=== PATIENT | male | born 1960 | race Caucasian/White ===

== ENCOUNTER 2017-11-10 11:18 | Inpatient (IN) | payer BC ==
[2017-11-09 12:21] LABS: BASOPHILS # (AUTO) 0.1 X10'3 (0-0.2); BASOPHILS % (AUTO) 0.5 % (0-1); EOSINOPHILS # (AUTO) 0.4 X10'3 (0-0.9); EOSINOPHILS % (AUTO) 3.4 % (0-6); HEMATOCRIT 50.7 % (42.0-52.0); HEMOGLOBIN 17.1 g/dl (14.0-17.9); LYMPHOCYTES # (AUTO) 2.7 X10'3 (1.1-4.8); LYMPHOCYTES % (AUTO) 20.6 % (21-51); MEAN CORPUSCULAR HEMOGLOBIN 28.8 PG (27.0-31.0); MEAN CORPUSCULAR HGB CONC 33.8 % (33.0-36.5); MEAN CORPUSCULAR VOLUME 85.3 FL (78-98); MEAN PLATELET VOLUME 8.7 FL (7.4-10.4); MONOCYTES # (AUTO) 1.1 X10'3 (0-0.9); MONOCYTES % (AUTO) 8.4 % (2-12); NEUTROPHILS # (AUTO) 8.8 X10'3 (1.8-7.7); NEUTROPHILS % (AUTO) 67.1 % (42-75); PLATELET COUNT 206 X10'3 (140-440); RED BLOOD COUNT 5.95 X10'6 (4.70-6.10); RED CELL DISTRIBUTION WIDTH 13.5 % (11.5-14.5); WHITE BLOOD COUNT 13.1 X10'3 (4.5-11.0)
[2017-11-09 12:48] LABS: ALANINE AMINOTRANSFERASE 37 U/L (12-78); ALBUMIN/GLOBULIN RATIO 1.2 (1.1-1.5); ALKALINE PHOSPHATASE 68 IU/L (46-116); ANION GAP 6 (8-16); ASPARTATE AMINO TRANSFERASE 13 U/L (10-37); BILIRUBIN,TOTAL 1.2 MG/DL (0.1-1.0); BLOOD UREA NITROGEN 18 MG/DL (7-18); BUN/CREATININE RATIO 18.9 (5.4-32.0); CALCIUM 9.2 MG/DL (8.5-10.1); CHLORIDE 107 MMOL/L (99-107); CREATININE 0.95 MG/DL (0.60-1.10); GLUCOSE 92 MG/DL (70-104); SODIUM 143 MMOL/L (135-145); TOTAL CARBON DIOXIDE 30.3 MMOL/L (24-32); TOTAL PROTEIN 7.4 G/DL (6.4-8.2); eGFR 82 ML/MIN
[2017-11-09 12:52] LABS: PARTIAL THROMBOPLASTIN TIME 24 SECONDS (22-32); PROTHROMBIN TIME 9.9 SECONDS (9.0-12.0)
[~2017-11-10] VITALS: Ht 170.2 cm; Wt 88.3 kg
[2017-11-10] VITALS (10 sets, daily range): BP systolic 117–148; BP diastolic 71–104
[~2017-11-10 11:18] MED LIST: LIDOcaine 2% (20 mg/ml) 5ml cardiac syringe ONE; MAGNESIUM SULFATE 4 MEQ/ML (1gm/2ml) injection ONE; albumin (human) 25% 100 ML IV solution IV ONE; heparin 1,000 units/ml 10ml inj ONE; heparin 10,000 units/1 ML INJ ONE; methylPREDNISolone sod. succ. 500mg inj ONE; phenylephrine 10mg/ml inj IV ONE; potassium Cl 2 mEq/ml inj IV ONE; sodium bicarbonate (8.4%) 1 mEq/ml syringe ONE
[2017-11-10] MEDS ORDERED: nitroGLYCERIN 0.4mg SUBLingual tab SL PRN (11:50)
[2017-11-10] MEDS ORDERED: diphenhydrAMINE 25mg capsule PO PRN (11:50)
[2017-11-10] MEDS ORDERED: LORazepam 0.5 MG tablet PO PRN (11:50)
[2017-11-10] MEDS ORDERED: SIMV10TA6 PO (11:51)
[2017-11-10] MEDS ORDERED: TACR1CAP28 PO (11:51)
[2017-11-10] MEDS ORDERED: LOSA100T28 PO (11:51)
[2017-11-10] MEDS ORDERED: PRE5T PO (11:51)
[2017-11-10 12:39] LABS: CLARITY,URINE Clear (Clear); COLOR,URINE Yellow (Yellow); GLUCOSE, URINE Negative (Neg); KETONES,URINE Negative (Neg); LEUKOCYTE ESTERASE ,URINE Negative (Neg); NITRITES, URINE Negative (Neg); OCCULT BLOOD,URINE Negative (Neg); PH,URINE 7.5 (4.8-8.0); PROTEIN,URINE Negative (Neg); UROBILINOGEN,URINE 0.2 E.U/dL (0.2-1.0)
[2017-11-10 12:46] LABS: ABG BASE EXCESS -0.3 mmol/L (-2.0-3.0); ABG HCO3 23.4 mmol/L (22.0-26.0); ABG OXYGEN SATURATION 95.2 % (95-98); ABG PCO2 (T) 35.8 mmHg (35.0-48.0); ABG PH (T) 7.433 (7.350-7.450); ABG PO2 (T) 74.5 mmHg (83-108); ALLEN'S TEST Positive; FCOHb 0.2 % (0.5-1.5); FMetHb 0.2 % (0.3-1.12); FO2Hb 94.8 % (94-100); TOTAL HEMOGLOBIN 16.7 G/dl (14.0-18.0)
[2017-11-10 12:48] LABS: HEMOGLOBIN A1C 5.5 % (4.5-6.2)
[2017-11-10 12:50] LABS: UA COLLECTION TYPE VOIDED
[2017-11-10] MEDS ORDERED: fentaNYL/PF 50MCG/1 ML 2ML syringe ONE ×2 (13:30→14:25)
[2017-11-10] MEDS ORDERED: midazolam 2 mg/2 ml injection ONE ×2 (13:30→14:25)
[2017-11-10] MEDS ORDERED: LIDOcaine 1%/PF (10mg/ml) 5ml vial ONE (13:30)
[2017-11-10] MEDS ORDERED: iohexol 350MG/ML 100ml bottle IV ONE (13:30)
[2017-11-10] MEDS ORDERED: iohexol 350 MG/ML 50ML vial IV ONE ×2 (13:30→14:16)
[2017-11-10] MEDS: normal saline 1000ml 1,000 ML IV SCH ×2 (13:42→20:33)
[2017-11-10] MEDS ORDERED: ondansetron/PF 4mg/2ml inj IV PRN (15:20)
[2017-11-10] MEDS ORDERED: HYDROcodone/acetaminophen 5mg/325mg tablet PO PRN (15:20)
[2017-11-10] MEDS ORDERED: HYDROcodone/acetaminophen 10/325mg tab PO PRN (15:25)
[2017-11-10] MEDS ORDERED: proCHLORperazine 10 MG/2 ml inj IV PRN (15:25)
[2017-11-10] MEDS: tacrolimus anhydrous 1mg capsule PO SCH ×2 (17:47→20:22)
[2017-11-10] MEDS: mupirocin 2% ointment 22GM TP SCH (20:22)
[2017-11-10] MEDS ORDERED: tacrolimus anhydrous 1mg capsule PO SCH (21:00)
[2017-11-10] MEDS ORDERED: iohexol 300mg/ml 100ml inj. ONE (21:06)
[2017-11-11] VITALS (18 sets, daily range): BP systolic 84–140; BP diastolic 46–89
[2017-11-11] MEDS ORDERED: vancomycin/NS 1 GM ADD-VANTAGE 250 ML IV ONE (05:30)
[2017-11-11] MEDS: insulin regular, human inj. 100 UNITS in normal saline 100ml IV soln 100 ML IV SCH ×8 (05:30→21:58)
[2017-11-11] MEDS ORDERED: ceFAZolin 2gm in dextrose, iso 100 ML IV ONE (05:30)
[2017-11-11] MEDS: insulin Lispro (HumaLOG) vial - multi-dose SQ SCH ×4 (05:30→17:56)
[2017-11-11] MEDS ORDERED: ringers solution, lacted 1,000 ML IV ONE (05:30)
[2017-11-11] MEDS ORDERED: dextrose 50%-water 50ml dispensing syringe IV PRN ×2 (05:30→11:10)
[2017-11-11 05:59] LABS: BASOPHILS # (AUTO) 0.1 X10'3 (0-0.2); BASOPHILS % (AUTO) 0.4 % (0-1); EOSINOPHILS # (AUTO) 0.4 X10'3 (0-0.9); EOSINOPHILS % (AUTO) 2.6 % (0-6); HEMOGLOBIN 15.8 g/dl (14.0-17.9); LYMPHOCYTES # (AUTO) 2.9 X10'3 (1.1-4.8); LYMPHOCYTES % (AUTO) 20.6 % (21-51); MEAN CORPUSCULAR HEMOGLOBIN 28.9 PG (27.0-31.0); MEAN CORPUSCULAR HGB CONC 33.7 % (33.0-36.5); MEAN CORPUSCULAR VOLUME 85.9 FL (78-98); MONOCYTES % (AUTO) 7.4 % (2-12); NEUTROPHILS # (AUTO) 9.7 X10'3 (1.8-7.7); PLATELET COUNT 180 X10'3 (140-440); RED BLOOD COUNT 5.47 X10'6 (4.70-6.10); RED CELL DISTRIBUTION WIDTH 13.3 % (11.5-14.5); WHITE BLOOD COUNT 14.1 X10'3 (4.5-11.0)
[2017-11-11] MEDS ORDERED: famotidine 20mg tablet PO ONE (06:00)
[2017-11-11] MEDS ORDERED: LORazepam 2 mg/ml vial IV ONE (06:00)
[2017-11-11 06:15] LABS: PROTHROMBIN TIME 10.2 SECONDS (9.0-12.0)
[2017-11-11] MEDS: mupirocin 2% ointment 22GM TP SCH (06:26)
[2017-11-11 06:29] LABS: ALANINE AMINOTRANSFERASE 45 U/L (12-78); ALBUMIN 3.6 G/DL (3.4-5.0); ALBUMIN/GLOBULIN RATIO 1.2 (1.1-1.5); ALKALINE PHOSPHATASE 63 IU/L (46-116); ANION GAP 10 (8-16); ASPARTATE AMINO TRANSFERASE 18 U/L (10-37); BILIRUBIN,TOTAL 1.9 MG/DL (0.1-1.0); BLOOD UREA NITROGEN 13 MG/DL (7-18); BUN/CREATININE RATIO 13.7 (5.4-32.0); CALCIUM 8.7 MG/DL (8.5-10.1); CHLORIDE 109 MMOL/L (99-107); CREATININE 0.95 MG/DL (0.60-1.10); GLUCOSE 94 MG/DL (70-104); POTASSIUM 3.7 MMOL/L (3.5-5.1); SODIUM 143 MMOL/L (135-145); TOTAL CARBON DIOXIDE 24.1 MMOL/L (24-32); TOTAL PROTEIN 6.5 G/DL (6.4-8.2); eGFR 82 ML/MIN
[2017-11-11] MEDS ORDERED: isoflurane 100ml inhalation liquid IH ONE (06:50)
[2017-11-11] MEDS ORDERED: nitroGLYCERIN in D5W 50mg/250ml (Tridil) infusion IV ONE (06:50)
[2017-11-11] MEDS ORDERED: MIDAZolam 1mg/ml 10ml vial ONE (06:58)
[2017-11-11] MEDS: tacrolimus anhydrous 1mg capsule PO SCH ×2 (08:00→12:51)
[2017-11-11 08:05] LABS: ABG BASE EXCESS -1.3 mmol/L (-2.0-3.0); ABG HCO3 23.4 mmol/L (22.0-26.0); ABG OXYGEN SATURATION 99.4 % (95-98); ABG PCO2 39.4 mmHg (35.0-45.0); ABG PH 7.391 (7.350-7.450); ABG PO2 392.5 mmHg (60.0-100.0); CL (ABG) 109 mmol/L (99-107); FCOHb 0.4 % (0.5-1.5); FMetHb 0.2 % (0.3-1.12); FO2Hb 98.8 % (94-100); GLUCOSE (ABG) 105 mg/dl (70-105); IONIZED CA (ABG) 1.17 mmol/L (1.03-1.32); K (ABG) 3.7 mmol/L (3.3-5.1); NA (ABG) 138 mmol/L (135-145)
[2017-11-11] MEDS ORDERED: NORMAL SALINE IV ONE (08:05)
[2017-11-11] MEDS ORDERED: TRANEXAMIC ACID IV ONE (08:05)
[2017-11-11] MEDS ORDERED: SUFENTANIL CITRATE 50 MCG/ML 2ml ampule IV ONE (08:09)
[2017-11-11] MEDS ORDERED: fentaNYL/PF 50MCG/1 ML 2ML syringe IV PRN (09:05)
[2017-11-11] MEDS ORDERED: midazolam 2 mg/2 ml injection IV PRN (09:05)
[2017-11-11 09:21] LABS: ABG BASE EXCESS -2.8 mmol/L (-2.0-3.0); ABG HCO3 21.7 mmol/L (22.0-26.0); ABG PH 7.387 (7.350-7.450); ABG PO2 532.1 mmHg (60.0-100.0); CL (ABG) 108 mmol/L (99-107); FCOHb 0.3 % (0.5-1.5); FMetHb 0.4 % (0.3-1.12); FO2Hb 98.3 % (94-100); GLUCOSE (ABG) 136 mg/dl (70-105); IONIZED CA (ABG) 1.03 mmol/L (1.03-1.32); K (ABG) 4.6 mmol/L (3.3-5.1); NA (ABG) 136 mmol/L (135-145); TOTAL HEMOGLOBIN 11.5 G/dl (14.0-18.0)
[2017-11-11] MEDS ORDERED: esmolol inj. 10 ML IV ONE (09:33)
[2017-11-11] MEDS ORDERED: rocuronium 10mg/ml inj IV ONE ×3 (09:33)
[2017-11-11] MEDS ORDERED: hydrocortisone sod succ/PF 100mg/2ml inj. ONE (09:33)
[2017-11-11] MEDS ORDERED: LIDOcaine 2% (20mg/ml) 5ml vial ONE (09:33)
[2017-11-11] MEDS ORDERED: etomidate 2mg/ml inj. ONE (09:33)
[2017-11-11] MEDS ORDERED: 0.9 % SODIUM CHLORIDE 10 ML VIAL ONE ×5 (09:33)
[2017-11-11 09:36] LABS: ABG BASE EXCESS VENOUS 0.7 mmol/L; ABG HCO3 VENOUS 25.9 mmol/L; ABG PCO2 VENOUS 44.2 mmHg; ABG PO2 VENOUS 47.5 mmHg; CL (ABG) 108 mmol/L (99-107); FHHb VENOUS 14.9 %; FMetHb VENOUS 0.3 %; FO2Hb VENOUS 84.8 %; GLUCOSE (ABG) 162 mg/dl (70-105); IONIZED CA (ABG) 1.04 mmol/L (1.03-1.32); K (ABG) 4.5 mmol/L (3.3-5.1); NA (ABG) 137 mmol/L (135-145); TOTAL HEMOGLOBIN 11.5 G/dl (14.0-18.0)
[2017-11-11 09:56] LABS: ABG BASE EXCESS -1.5 mmol/L (-2.0-3.0); ABG HCO3 23.5 mmol/L (22.0-26.0); ABG OXYGEN SATURATION 98.7 % (95-98); ABG PCO2 40.3 mmHg (35.0-45.0); ABG PH 7.383 (7.350-7.450); CL (ABG) 108 mmol/L (99-107); FCOHb 0.3 % (0.5-1.5); FMetHb 0.3 % (0.3-1.12); FO2Hb 98.1 % (94-100); GLUCOSE (ABG) 169 mg/dl (70-105); IONIZED CA (ABG) 1.06 mmol/L (1.03-1.32); K (ABG) 4.7 mmol/L (3.3-5.1); NA (ABG) 136 mmol/L (135-145); TOTAL HEMOGLOBIN 11.4 G/dl (14.0-18.0)
[2017-11-11 10:35] LABS: ABG PCO2 42.3 mmHg (35.0-45.0); CL (ABG) 110 mmol/L (99-107); FCOHb 0.3 % (0.5-1.5); FMetHb 0.3 % (0.3-1.12); FO2Hb 98.4 % (94-100); GLUCOSE (ABG) 154 mg/dl (70-105); IONIZED CA (ABG) 1.23 mmol/L (1.03-1.32); NA (ABG) 138 mmol/L (135-145); TOTAL HEMOGLOBIN 11.7 G/dl (14.0-18.0)
[2017-11-11] MEDS ORDERED: ceFAZolin 1000mg inj ONE (10:48)
[2017-11-11] MEDS ORDERED: nitroGLYCERIN-Tridil 50MG/D5W 250 ML IV PRN (11:09)
[2017-11-11] MEDS ORDERED: niCARDipine/sod cl 20mg/200ml 200 ML IV PRN (11:09)
[2017-11-11] MEDS: sodium chloride 0.45% 1,000 ML IV SCH (11:09)
[2017-11-11] MEDS ORDERED: DOPamine 400mg/D5W 250ml 250 ML IV PRN (11:09)
[2017-11-11] MEDS ORDERED: Neutra Phos packet PO PRN (11:10)
[2017-11-11] MEDS ORDERED: magnesium hydroxide 30ml (MOM) UD suspension PO PRN (11:10)
[2017-11-11] MEDS ORDERED: metoclopramide 5 mg/ml inj IV PRN (11:10)
[2017-11-11] MEDS ORDERED: magnesium 2GM in 50ml NS 50 ML IV PRN (11:10)
[2017-11-11] MEDS ORDERED: normal saline 250ml IV soln 250 ML IV PRN (11:10)
[2017-11-11] MEDS ORDERED: acetaminophen 325mg tablet PO PRN (11:10)
[2017-11-11] MEDS ORDERED: insulin regular, human inj. 100 UNITS in normal saline 100ml IV soln 100 ML IV SCH ×2 (11:10)
[2017-11-11] MEDS ORDERED: sodium phosphate inj. 30 MMOL in dextrose 5%-water 250 ML IV PRN (11:10)
[2017-11-11] MEDS ORDERED: sodium phosphate inj. 15 MMOL in dextrose 5%-water 150 ML IV PRN (11:10)
[2017-11-11] MEDS ORDERED: albumin (Human) 5% 250ml 250 ML IV PRN (11:10)
[2017-11-11] MEDS ORDERED: potassium Cl 20mEq/100mL bag 100 ML IV PRN (11:10)
[2017-11-11 11:46] LABS: ABG BASE EXCESS -1.7 mmol/L (-2.0-3.0); ABG HCO3 23.7 mmol/L (22.0-26.0); ABG OXYGEN SATURATION 98.8 % (95-98); ABG PCO2 (T) 42.3 mmHg (35.0-48.0); ABG PH (T) 7.366 (7.350-7.450); ABG PO2 (T) 204.3 mmHg (83-108); FCOHb 0.1 % (0.5-1.5); FMetHb 0.3 % (0.3-1.12); FO2Hb 98.4 % (94-100); MINUTE VOLUME 8 L/min; PEEP 5 cm H2O; RESPIRATORY RATE 12 b/min; RESPIRATORY RATE (OBSERVED) 15 b/min; TIDAL VOLUME 600 mL; TOTAL HEMOGLOBIN 13.9 G/dl (14.0-18.0)
[2017-11-11 11:54] LABS: HEMATOCRIT 39.4 % (42.0-52.0); HEMOGLOBIN 13.6 g/dl (14.0-17.9); MEAN CORPUSCULAR HEMOGLOBIN 29.5 PG (27.0-31.0); MEAN CORPUSCULAR HGB CONC 34.5 % (33.0-36.5); MEAN CORPUSCULAR VOLUME 85.6 FL (78-98); MEAN PLATELET VOLUME 8.8 FL (7.4-10.4); PLATELET COUNT 124 X10'3 (140-440); RED CELL DISTRIBUTION WIDTH 12.9 % (11.5-14.5)
[2017-11-11 11:58] LABS: WHITE BLOOD COUNT 28.4 X10'3 (4.5-11.0)
[2017-11-11 12:08] LABS: ALANINE AMINOTRANSFERASE 30 U/L (12-78); ALBUMIN/GLOBULIN RATIO 1.6 (1.1-1.5); ALKALINE PHOSPHATASE 40 IU/L (46-116); ANION GAP 4 (8-16); ASPARTATE AMINO TRANSFERASE 33 U/L (10-37); BILIRUBIN,TOTAL 1.9 MG/DL (0.1-1.0); BLOOD UREA NITROGEN 14 MG/DL (7-18); BUN/CREATININE RATIO 14.1 (5.4-32.0); CHLORIDE 113 MMOL/L (99-107); CREATININE 0.99 MG/DL (0.60-1.10); GLUCOSE 137 MG/DL (70-104); MAGNESIUM 2.9 MG/DL (1.5-2.4); PHOSPHORUS 2.5 MG/DL (2.3-4.5); POTASSIUM 3.8 MMOL/L (3.5-5.1); SODIUM 144 MMOL/L (135-145); TOTAL CARBON DIOXIDE 26.6 MMOL/L (24-32); TOTAL PROTEIN 4.9 G/DL (6.4-8.2); eGFR 78 ML/MIN
[2017-11-11 12:25] LABS: MICROCYTOSIS 1+; PLATELET ESTIMATE DECREASED; TOTAL CELLS COUNTED 100
[2017-11-11] MEDS ORDERED: propofol 1000mg/100ml bottle 100 ML IV PRN (12:45)
[2017-11-11] MEDS: potassium Cl 20mEq/100mL bag 100 ML IV PRN ×3 (12:57→17:39)
[2017-11-11 14:56] LABS: ABG BASE EXCESS -6.1 mmol/L (-2.0-3.0); ABG HCO3 18.5 mmol/L (22.0-26.0); ABG OXYGEN SATURATION 91.4 % (95-98); ABG PCO2 (T) 34.2 mmHg (35.0-48.0); ABG PH (T) 7.351 (7.350-7.450); ABG PO2 (T) 61.4 mmHg (83-108); FCOHb 0.2 % (0.5-1.5); FMetHb 0.3 % (0.3-1.12); FO2Hb 90.9 % (94-100); MINUTE VOLUME 14 L/min; PEEP 5 cm H2O; RESPIRATORY RATE 12 b/min; RESPIRATORY RATE (OBSERVED) 20 b/min; TIDAL VOLUME 600 mL; TOTAL HEMOGLOBIN 14.4 G/dl (14.0-18.0)
[2017-11-11] MEDS: cefazolin 1gm/NS 100mL 100 ML IV SCH ×2 (16:14→23:46)
[2017-11-11 16:38] LABS: BASOPHILS % (AUTO) 0.1 % (0-1); EOSINOPHILS % (AUTO) 0 % (0-6); HEMATOCRIT 40.5 % (42.0-52.0); HEMOGLOBIN 13.9 g/dl (14.0-17.9); LYMPHOCYTES # (AUTO) 0.5 X10'3 (1.1-4.8); MEAN CORPUSCULAR HEMOGLOBIN 29.2 PG (27.0-31.0); MEAN CORPUSCULAR HGB CONC 34.3 % (33.0-36.5); MEAN CORPUSCULAR VOLUME 84.9 FL (78-98); MEAN PLATELET VOLUME 8.5 FL (7.4-10.4); MONOCYTES # (AUTO) 0.1 X10'3 (0-0.9); MONOCYTES % (AUTO) 0.7 % (2-12); NEUTROPHILS # (AUTO) 21.7 X10'3 (1.8-7.7); NEUTROPHILS % (AUTO) 97.2 % (42-75); PLATELET COUNT 118 X10'3 (140-440); RED BLOOD COUNT 4.77 X10'6 (4.70-6.10); RED CELL DISTRIBUTION WIDTH 13.4 % (11.5-14.5); WHITE BLOOD COUNT 22.4 X10'3 (4.5-11.0)
[2017-11-11 16:55] LABS: ANISOCYTOSIS 1+; MICROCYTOSIS 1+; PLATELET ESTIMATE DECREASED; TOTAL CELLS COUNTED 100
[2017-11-11 17:27] LABS: ALBUMIN 3.4 G/DL (3.4-5.0); ANION GAP 8 (8-16); BLOOD UREA NITROGEN 15 MG/DL (7-18); BUN/CREATININE RATIO 14.7 (5.4-32.0); CALCIUM 7.8 MG/DL (8.5-10.1); CHLORIDE 114 MMOL/L (99-107); CREATININE 1.02 MG/DL (0.60-1.10); GLUCOSE 116 MG/DL (70-104); POTASSIUM 4.4 MMOL/L (3.5-5.1); SODIUM 146 MMOL/L (135-145); TOTAL CARBON DIOXIDE 24.2 MMOL/L (24-32); eGFR 76 ML/MIN
[2017-11-11] MEDS: ondansetron/PF 4mg/2ml inj IV PRN (17:36)
[2017-11-11] MEDS: docusate sod 100mg capsule PO SCH (20:00)
[2017-11-11] MEDS: mupirocin 2% ointment 22GM NS SCH (20:03)
[2017-11-11] MEDS: vancomycin/NS 1 GM ADD-VANTAGE 250 ML IV SCH (20:03)
[2017-11-12] VITALS (24 sets, daily range): BP systolic 118–157; BP diastolic 28–90
[2017-11-12] MEDS: HYDROcodone/acetaminophen 10/325mg tab PO PRN ×4 (00:57→19:02)
[2017-11-12 03:25] LABS: BASOPHILS % (AUTO) 0 % (0-1); EOSINOPHILS # (AUTO) 0.4 X10'3 (0-0.9); EOSINOPHILS % (AUTO) 1.8 % (0-6); HEMATOCRIT 36.2 % (42.0-52.0); HEMOGLOBIN 12.4 g/dl (14.0-17.9); LYMPHOCYTES # (AUTO) 0.8 X10'3 (1.1-4.8); LYMPHOCYTES % (AUTO) 3.6 % (21-51); MEAN CORPUSCULAR HEMOGLOBIN 29.1 PG (27.0-31.0); MEAN CORPUSCULAR HGB CONC 34.2 % (33.0-36.5); MEAN CORPUSCULAR VOLUME 84.9 FL (78-98); MEAN PLATELET VOLUME 9.1 FL (7.4-10.4); MONOCYTES # (AUTO) 1.9 X10'3 (0-0.9); MONOCYTES % (AUTO) 8.4 % (2-12); NEUTROPHILS # (AUTO) 19.5 X10'3 (1.8-7.7); NEUTROPHILS % (AUTO) 86.2 % (42-75); PLATELET COUNT 103 X10'3 (140-440); RED BLOOD COUNT 4.27 X10'6 (4.70-6.10); RED CELL DISTRIBUTION WIDTH 13.4 % (11.5-14.5); WHITE BLOOD COUNT 22.6 X10'3 (4.5-11.0)
[2017-11-12 03:35] LABS: PARTIAL THROMBOPLASTIN TIME 26 SECONDS (22-32); PROTHROMBIN TIME 10.8 SECONDS (9.0-12.0)
[2017-11-12 03:54] LABS: ALANINE AMINOTRANSFERASE 34 U/L (12-78); ALBUMIN 3.2 G/DL (3.4-5.0); ALBUMIN/GLOBULIN RATIO 1.5 (1.1-1.5); ALKALINE PHOSPHATASE 39 IU/L (46-116); ANION GAP 8 (8-16); ASPARTATE AMINO TRANSFERASE 42 U/L (10-37); BILIRUBIN,TOTAL 2.1 MG/DL (0.1-1.0); BLOOD UREA NITROGEN 13 MG/DL (7-18); BUN/CREATININE RATIO 16.3 (5.4-32.0); CHLORIDE 108 MMOL/L (99-107); GLUCOSE 120 MG/DL (70-104); MAGNESIUM 1.9 MG/DL (1.5-2.4); PHOSPHORUS 3.5 MG/DL (2.3-4.5); POTASSIUM 4.4 MMOL/L (3.5-5.1); SODIUM 140 MMOL/L (135-145); TOTAL CARBON DIOXIDE 24.3 MMOL/L (24-32); TOTAL PROTEIN 5.4 G/DL (6.4-8.2); eGFR > 90 ML/MIN
[2017-11-12] MEDS: insulin regular, human inj. 100 UNITS in normal saline 100ml IV soln 100 ML IV SCH ×4 (04:10→05:53)
[2017-11-12] MEDS: potassium Cl 20mEq/100mL bag 100 ML IV PRN (04:10)
[2017-11-12] MEDS: magnesium 4gm in 100ml NS 100 ML IV PRN (04:11)
[2017-11-12] MEDS: mupirocin 2% ointment 22GM NS SCH ×2 (08:34→20:31)
[2017-11-12] MEDS: cefazolin 1gm/NS 100mL 100 ML IV SCH ×2 (08:34→16:09)
[2017-11-12] MEDS: vancomycin/NS 1 GM ADD-VANTAGE 250 ML IV SCH ×2 (08:34→20:31)
[2017-11-12] MEDS: metoprolol tartrate 12.5mg (1/2 tablet) PO SCH ×2 (08:38→20:31)
[2017-11-12] MEDS: atorvastatin 10mg tablet PO SCH (08:39)
[2017-11-12] MEDS: docusate sod 100mg capsule PO SCH ×2 (08:40→20:31)
[2017-11-12] MEDS: aspirin 325mg tablet, delayed-release (Ecotrin) PO SCH (08:40)
[2017-11-12] MEDS: insulin Lispro (HumaLOG) vial - multi-dose SQ SCH ×2 (08:49→13:55)
[2017-11-12] MEDS: pantoprazole 40mg Tablet.DR PO SCH (08:54)
[2017-11-12] MEDS: losartan 25mg tablet PO SCH (10:23)
[2017-11-12] MEDS ORDERED: mineral oil/petrolatum ophthal oint EACHEYE SCH (14:00)
[2017-11-12] MEDS ORDERED: dextrose ORAL solution 15 GM/59 ML bottle PO PRN ×2 (16:50)
[2017-11-12] MEDS ORDERED: insulin Lispro (HumaLOG) vial - multi-dose SQ SCH (16:50)
[2017-11-12] MEDS ORDERED: glucagon, human recombinant 1mg kit SUBCUT PRN (16:50)
[2017-11-12] MEDS ORDERED: dextrose 50%-water 50ml dispensing syringe IV PRN ×2 (16:50)
[2017-11-12] MEDS ORDERED: Insulin Detemir pen SQ SCH (21:00)
[2017-11-13] VITALS (24 sets, daily range): BP systolic 116–157; BP diastolic 68–95
[2017-11-13] MEDS: cefazolin 1gm/NS 100mL 100 ML IV SCH (01:13)
[2017-11-13] MEDS: HYDROcodone/acetaminophen 10/325mg tab PO PRN ×5 (01:14→19:27)
[2017-11-13] MEDS: ondansetron/PF 4mg/2ml inj IV PRN ×2 (03:18→09:19)
[2017-11-13 03:31] LABS: BASOPHILS % (AUTO) 0 % (0-1); EOSINOPHILS # (AUTO) 0.3 X10'3 (0-0.9); EOSINOPHILS % (AUTO) 1.2 % (0-6); HEMATOCRIT 38.1 % (42.0-52.0); LYMPHOCYTES # (AUTO) 1.2 X10'3 (1.1-4.8); LYMPHOCYTES % (AUTO) 5.4 % (21-51); MEAN CORPUSCULAR HEMOGLOBIN 29.2 PG (27.0-31.0); MEAN CORPUSCULAR HGB CONC 34.1 % (33.0-36.5); MEAN CORPUSCULAR VOLUME 85.6 FL (78-98); MEAN PLATELET VOLUME 8.9 FL (7.4-10.4); MONOCYTES # (AUTO) 2.3 X10'3 (0-0.9); MONOCYTES % (AUTO) 9.7 % (2-12); NEUTROPHILS # (AUTO) 19.5 X10'3 (1.8-7.7); NEUTROPHILS % (AUTO) 83.7 % (42-75); PLATELET COUNT 90 X10'3 (140-440); RED BLOOD COUNT 4.45 X10'6 (4.70-6.10); RED CELL DISTRIBUTION WIDTH 13.6 % (11.5-14.5); WHITE BLOOD COUNT 23.3 X10'3 (4.5-11.0)
[2017-11-13 03:48] LABS: ALBUMIN 3.4 G/DL (3.4-5.0); ANION GAP 6 (8-16); BLOOD UREA NITROGEN 12 MG/DL (7-18); BUN/CREATININE RATIO 13.8 (5.4-32.0); CALCIUM 8.8 MG/DL (8.5-10.1); CHLORIDE 104 MMOL/L (99-107); CREATININE 0.87 MG/DL (0.60-1.10); GLUCOSE 147 MG/DL (70-104); MAGNESIUM 1.8 MG/DL (1.5-2.4); PHOSPHORUS 2.7 MG/DL (2.3-4.5); POTASSIUM 4.2 MMOL/L (3.5-5.1); SODIUM 139 MMOL/L (135-145); TOTAL CARBON DIOXIDE 28.6 MMOL/L (24-32); eGFR > 90 ML/MIN
[2017-11-13] MEDS: magnesium 4gm in 100ml NS 100 ML IV PRN (04:07)
[2017-11-13] MEDS: potassium Cl 20mEq/100mL bag 100 ML IV PRN (04:07)
[2017-11-13 04:55] LABS: TOTAL CELLS COUNTED 100
[2017-11-13 04:56] LABS: PLATELET ESTIMATE DECREASED
[2017-11-13] MEDS: mupirocin 2% ointment 22GM NS SCH (08:04)
[2017-11-13] MEDS: losartan 25mg tablet PO SCH (08:04)
[2017-11-13] MEDS: metoprolol tartrate 12.5mg (1/2 tablet) PO SCH ×2 (08:05→19:52)
[2017-11-13] MEDS: aspirin 325mg tablet, delayed-release (Ecotrin) PO SCH (08:06)
[2017-11-13] MEDS: atorvastatin 10mg tablet PO SCH (08:06)
[2017-11-13] MEDS: pantoprazole 40mg Tablet.DR PO SCH (08:06)
[2017-11-13] MEDS: docusate sod 100mg capsule PO SCH ×2 (08:07→19:52)
[2017-11-13 09:15] LABS: MAGNESIUM 2.2 MG/DL (1.5-2.4)
[2017-11-13] MEDS: mag hydrox/Alum hydrox/simeth 30ml oral suspension PO PRN ×2 (10:25→17:45)
[2017-11-13] MEDS: sodium chloride 0.45% 1,000 ML IV SCH (11:09)
[2017-11-13] MEDS ORDERED: magnesium Cl slow-release 64mg tablet PO PRN (17:50)
[2017-11-13] MEDS ORDERED: potassium Cl 40MEQ/NS 500ml 500 ML IV PRN ×2 (17:50)
[2017-11-13] MEDS ORDERED: potassium Cl 20 mEq SR tablet PO PRN ×2 (17:50)
[2017-11-13] MEDS ORDERED: magnesium 4gm in 100ml NS 100 ML IV PRN (17:50)
[2017-11-13] MEDS ORDERED: magnesium 2GM in 50ml NS 50 ML IV PRN (17:50)
[2017-11-13] MEDS ORDERED: magnesium Cl slow-release 64mg tablet PO SCH (20:00)
[2017-11-13] MEDS ORDERED: potassium Cl 20 mEq SR tablet PO SCH (20:00)
[2017-11-14] VITALS (19 sets, daily range): BP systolic 124–188; BP diastolic 65–98
[2017-11-14] MEDS: HYDROcodone/acetaminophen 10/325mg tab PO PRN ×3 (05:10→19:22)
[2017-11-14 05:29] LABS: BASOPHILS # (AUTO) 0.1 X10'3 (0-0.2); BASOPHILS % (AUTO) 0.4 % (0-1); EOSINOPHILS # (AUTO) 0.2 X10'3 (0-0.9); EOSINOPHILS % (AUTO) 0.9 % (0-6); HEMATOCRIT 37.7 % (42.0-52.0); HEMOGLOBIN 12.8 g/dl (14.0-17.9); LYMPHOCYTES # (AUTO) 1.2 X10'3 (1.1-4.8); LYMPHOCYTES % (AUTO) 7.3 % (21-51); MEAN CORPUSCULAR HEMOGLOBIN 29.4 PG (27.0-31.0); MEAN CORPUSCULAR HGB CONC 33.9 % (33.0-36.5); MEAN CORPUSCULAR VOLUME 86.8 FL (78-98); MEAN PLATELET VOLUME 9.3 FL (7.4-10.4); MONOCYTES # (AUTO) 1.8 X10'3 (0-0.9); MONOCYTES % (AUTO) 10.5 % (2-12); NEUTROPHILS # (AUTO) 13.6 X10'3 (1.8-7.7); NEUTROPHILS % (AUTO) 80.9 % (42-75); PLATELET COUNT 87 X10'3 (140-440); RED BLOOD COUNT 4.35 X10'6 (4.70-6.10); WHITE BLOOD COUNT 16.8 X10'3 (4.5-11.0)
[2017-11-14 05:36] LABS: ALBUMIN 3.1 G/DL (3.4-5.0); ANION GAP 3 (8-16); BLOOD UREA NITROGEN 9 MG/DL (7-18); CALCIUM 8.9 MG/DL (8.5-10.1); CHLORIDE 105 MMOL/L (99-107); CREATININE 0.69 MG/DL (0.60-1.10); GLUCOSE 109 MG/DL (70-104); PHOSPHORUS 2.6 MG/DL (2.3-4.5); POTASSIUM 4.1 MMOL/L (3.5-5.1); SODIUM 139 MMOL/L (135-145); TOTAL CARBON DIOXIDE 30.7 MMOL/L (24-32); eGFR > 90 ML/MIN
[2017-11-14] MEDS ORDERED: magnesium 4gm in 100ml NS 100 ML IV PRN (07:25)
[2017-11-14] MEDS ORDERED: magnesium 2GM in 50ml NS 50 ML IV PRN (07:25)
[2017-11-14] MEDS ORDERED: potassium Cl 40MEQ/NS 500ml 500 ML IV PRN ×2 (07:25)
[2017-11-14] MEDS ORDERED: potassium Cl 20 mEq SR tablet PO PRN ×2 (07:25)
[2017-11-14] MEDS ORDERED: magnesium Cl slow-release 64mg tablet PO PRN (07:25)
[2017-11-14] MEDS ORDERED: magnesium citrate 296ml oral solution PO ONE (07:45)
[2017-11-14] MEDS ORDERED: K and/or MAG REPLACEMENT MC SCH (08:00)
[2017-11-14] MEDS: K and/or MAG REPLACEMENT MC SCH (08:00)
[2017-11-14] MEDS: metoprolol tartrate 12.5mg (1/2 tablet) PO SCH ×2 (08:11→19:29)
[2017-11-14] MEDS: magnesium Cl slow-release 64mg tablet PO SCH ×2 (08:11→19:31)
[2017-11-14] MEDS: atorvastatin 10mg tablet PO SCH (08:12)
[2017-11-14] MEDS: docusate sod 100mg capsule PO SCH ×2 (08:12→20:00)
[2017-11-14] MEDS: pantoprazole 40mg Tablet.DR PO SCH (08:12)
[2017-11-14] MEDS: losartan 25mg tablet PO SCH (08:12)
[2017-11-14] MEDS: potassium Cl 20 mEq SR tablet PO SCH ×2 (08:12→20:00)
[2017-11-14] MEDS: aspirin 325mg tablet, delayed-release (Ecotrin) PO SCH (08:12)
[2017-11-14] MEDS: Protein Smoothie (high protein) 240ml (8oz) cup PO SCH ×2 (13:00→18:00)
[2017-11-14 13:41] LABS: ACTIVATED CLOTTING TIME 111 SEC (101-148)
[2017-11-14 13:41] LABS: ACT @ 1.70 U 295 SEC (193-297); ACT @ 2.84 U 410 SEC (260-420); BASELINE ACT 147 SEC (101-148); PATIENT WEIGHT 89.0k KG
[2017-11-15] VITALS (11 sets, daily range): BP systolic 121–148; BP diastolic 78–96
[2017-11-15] MEDS: HYDROcodone/acetaminophen 10/325mg tab PO PRN ×4 (01:13→19:24)
[2017-11-15 05:49] LABS: BASOPHILS % (AUTO) 0.2 % (0-1); EOSINOPHILS # (AUTO) 0.4 X10'3 (0-0.9); HEMATOCRIT 38.6 % (42.0-52.0); LYMPHOCYTES # (AUTO) 1.4 X10'3 (1.1-4.8); LYMPHOCYTES % (AUTO) 9.6 % (21-51); MEAN CORPUSCULAR HEMOGLOBIN 29.4 PG (27.0-31.0); MEAN CORPUSCULAR HGB CONC 33.7 % (33.0-36.5); MEAN PLATELET VOLUME 9.1 FL (7.4-10.4); MONOCYTES # (AUTO) 1.5 X10'3 (0-0.9); MONOCYTES % (AUTO) 10.1 % (2-12); NEUTROPHILS # (AUTO) 11.3 X10'3 (1.8-7.7); NEUTROPHILS % (AUTO) 77.1 % (42-75); PLATELET COUNT 114 X10'3 (140-440); RED BLOOD COUNT 4.44 X10'6 (4.70-6.10); RED CELL DISTRIBUTION WIDTH 13.1 % (11.5-14.5); WHITE BLOOD COUNT 14.6 X10'3 (4.5-11.0)
[2017-11-15 06:04] LABS: ANION GAP 5 (8-16); BLOOD UREA NITROGEN 13 MG/DL (7-18); BUN/CREATININE RATIO 16.5 (5.4-32.0); CALCIUM 9.4 MG/DL (8.5-10.1); CHLORIDE 105 MMOL/L (99-107); CREATININE 0.79 MG/DL (0.60-1.10); GLUCOSE 98 MG/DL (70-104); MAGNESIUM 1.9 MG/DL (1.5-2.4); SODIUM 140 MMOL/L (135-145); TOTAL CARBON DIOXIDE 30.2 MMOL/L (24-32); eGFR > 90 ML/MIN
[2017-11-15] MEDS: atorvastatin 10mg tablet PO SCH (07:52)
[2017-11-15] MEDS: aspirin 325mg tablet, delayed-release (Ecotrin) PO SCH (07:52)
[2017-11-15] MEDS: pantoprazole 40mg Tablet.DR PO SCH (07:53)
[2017-11-15] MEDS: losartan 25mg tablet PO SCH (07:53)
[2017-11-15] MEDS: docusate sod 100mg capsule PO SCH ×2 (07:53→19:23)
[2017-11-15] MEDS: magnesium Cl slow-release 64mg tablet PO SCH ×2 (07:53→19:23)
[2017-11-15] MEDS: K and/or MAG REPLACEMENT MC SCH (07:54)
[2017-11-15] MEDS: metoprolol tartrate 12.5mg (1/2 tablet) PO SCH ×2 (07:54→19:25)
[2017-11-15] MEDS: potassium Cl 20 mEq SR tablet PO SCH ×2 (08:00→19:24)
[2017-11-15] MEDS: Protein Smoothie (high protein) 240ml (8oz) cup PO SCH ×3 (08:00→18:00)
[2017-11-15] MEDS ORDERED: LOSA25TA21 PO (09:45)
[2017-11-15] MEDS ORDERED: COL100C PO (09:45)
[2017-11-15] MEDS ORDERED: ASPI-41 PO (09:45)
[2017-11-15] MEDS ORDERED: METO25TA6 PO (09:45)
[2017-11-15] MEDS ORDERED: HYDR-3972 PO (09:45)
[2017-11-15] MEDS ORDERED: amiodarone 150mg/dext, iso-os 100 ML IV ONE (13:00)
[2017-11-15] MEDS: amiodarone/D5 450MG/250ML BAG 250 ML IV SCH ×3 (13:17→19:16)
[2017-11-16] MEDS: amiodarone/D5 450MG/250ML BAG 250 ML IV SCH (01:31)
[2017-11-16] MEDS: HYDROcodone/acetaminophen 10/325mg tab PO PRN ×2 (01:36→09:10)
[2017-11-16 03:00] VITALS: BP 133/83
[2017-11-16 05:28] LABS: BASOPHILS % (AUTO) 0.2 % (0-1); EOSINOPHILS # (AUTO) 0.7 X10'3 (0-0.9); EOSINOPHILS % (AUTO) 5.7 % (0-6); HEMATOCRIT 39.2 % (42.0-52.0); HEMOGLOBIN 13.3 g/dl (14.0-17.9); LYMPHOCYTES # (AUTO) 1.4 X10'3 (1.1-4.8); LYMPHOCYTES % (AUTO) 11.3 % (21-51); MEAN CORPUSCULAR HGB CONC 33.9 % (33.0-36.5); MEAN CORPUSCULAR VOLUME 85.6 FL (78-98); MEAN PLATELET VOLUME 8.9 FL (7.4-10.4); MONOCYTES # (AUTO) 1.3 X10'3 (0-0.9); NEUTROPHILS # (AUTO) 9.2 X10'3 (1.8-7.7); NEUTROPHILS % (AUTO) 72.8 % (42-75); PLATELET COUNT 135 X10'3 (140-440); RED BLOOD COUNT 4.58 X10'6 (4.70-6.10); RED CELL DISTRIBUTION WIDTH 13.1 % (11.5-14.5); WHITE BLOOD COUNT 12.6 X10'3 (4.5-11.0)
[2017-11-16 05:55] LABS: ANION GAP 6 (8-16); BLOOD UREA NITROGEN 13 MG/DL (7-18); BUN/CREATININE RATIO 18.6 (5.4-32.0); CALCIUM 9.3 MG/DL (8.5-10.1); CHLORIDE 106 MMOL/L (99-107); GLUCOSE 127 MG/DL (70-104); MAGNESIUM 1.9 MG/DL (1.5-2.4); POTASSIUM 3.9 MMOL/L (3.5-5.1); SODIUM 140 MMOL/L (135-145); TOTAL CARBON DIOXIDE 28.3 MMOL/L (24-32); eGFR > 90 ML/MIN
[2017-11-16 06:00] VITALS: BP 135/84
[2017-11-16] MEDS: potassium Cl 20 mEq SR tablet PO SCH (07:48)
[2017-11-16] MEDS: losartan 25mg tablet PO SCH (07:48)
[2017-11-16] MEDS: Protein Smoothie (high protein) 240ml (8oz) cup PO SCH ×2 (07:49→12:22)
[2017-11-16] MEDS: aspirin 325mg tablet, delayed-release (Ecotrin) PO SCH (07:49)
[2017-11-16] MEDS: magnesium Cl slow-release 64mg tablet PO SCH (07:50)
[2017-11-16] MEDS: docusate sod 100mg capsule PO SCH (07:50)
[2017-11-16] MEDS: pantoprazole 40mg Tablet.DR PO SCH (07:50)
[2017-11-16] MEDS: atorvastatin 10mg tablet PO SCH (07:50)
[2017-11-16] MEDS: metoprolol tartrate 12.5mg (1/2 tablet) PO SCH (07:50)
[2017-11-16] MEDS: K and/or MAG REPLACEMENT MC SCH (07:51)
[2017-11-16] MEDS ORDERED: diltiazem CD 180mg cap (once-daily) PO SCH (08:00)
[2017-11-16] MEDS ORDERED: amiodarone 200mg tablet PO SCH (08:00)
[2017-11-16 11:00] VITALS: BP 150/90
[2017-11-16 15:28] VITALS: BP 155/85
== END 2017-11-16 15:25 | disposition home or self-care (01) | DRG 218 ==
LOC: SSTAY O 11:18 → PCU 3S 15:14 → CICU 2S 15:43 → UNDOFXSDCSVC 11-11 09:32 → PCU 3S 11-11 09:32
PROVIDERS: ADMIT Thoracic Surgery (Cardiothoracic Vascular Surgery); ATTEND Internal Medicine Cardiovascular Disease
PROC: 4A023N7 Measurement of Cardiac Sampling and Pressure, Left Heart, Percutaneous Approach (ICD-10-PCS; 2017-11-10)
PROC: BW241ZZ Computerized Tomography (CT Scan) of Chest and Abdomen using Low Osmolar Contrast (ICD-10-PCS; 2017-11-10)
PROC: B2111ZZ Fluoroscopy of Multiple Coronary Arteries using Low Osmolar Contrast (ICD-10-PCS; 2017-11-10)
PROC: B3101ZZ Fluoroscopy of Thoracic Aorta using Low Osmolar Contrast (ICD-10-PCS; 2017-11-10)
PROC: B2151ZZ Fluoroscopy of Left Heart using Low Osmolar Contrast (ICD-10-PCS; 2017-11-10)
PROC: 07TM0ZZ Resection of Thymus, Open Approach (ICD-10-PCS; 2017-11-11)
PROC: 02HV33Z Insertion of Infusion Device into Superior Vena Cava, Percutaneous Approach (ICD-10-PCS; 2017-11-11)
PROC: B548ZZA Ultrasonography of Superior Vena Cava, Guidance (ICD-10-PCS; 2017-11-11)
PROC: 4A133B3 Monitoring of Arterial Pressure, Pulmonary, Percutaneous Approach (ICD-10-PCS; 2017-11-11)
PROC: 02HQ32Z Insertion of Monitoring Device into Right Pulmonary Artery, Percutaneous Approach (ICD-10-PCS; 2017-11-11)
PROC: 5A1221Z Performance of Cardiac Output, Continuous (ICD-10-PCS; 2017-11-11)
PROC: B24BZZ4 Ultrasonography of Heart with Aorta, Transesophageal (ICD-10-PCS; 2017-11-11)
PROC: 02RF08Z Replacement of Aortic Valve with Zooplastic Tissue, Open Approach (ICD-10-PCS; principal; 2017-11-11 06:50)
DX: I35.0 Nonrheumatic aortic (valve) stenosis (principal); G70.00 Myasthenia gravis without (acute) exacerbation; E78.00 Pure hypercholesterolemia, unspecified; F12.90 Cannabis use, unspecified, uncomplicated; I10 Essential (primary) hypertension; I77.810 Thoracic aortic ectasia; L40.9 Psoriasis, unspecified; I48.91 Unspecified atrial fibrillation; N20.0 Calculus of kidney; Z79.52 Long term (current) use of systemic steroids; Z80.8 Family history of malignant neoplasm of other organs or systems; Z82.0 Family history of epilepsy and other diseases of the nervous system; Z82.5 Family history of asthma and other chronic lower respiratory diseases; Z88.8 Allergy status to other drugs, medicaments and biological substances; Z79.899 Other long term (current) drug therapy; Z79.01 Long term (current) use of anticoagulants; Z87.442 Personal history of urinary calculi
CPT/HCPCS: 93312; 93325; 93458; 93567; Z7506; Z7508; 36415; 36600; 71045; 71046; 71250; 80048; 80053; 81003; 82330; 82435; 82800; 82803; 82947; 82948; 83036; 83735; 84100; 84132; 84295; 85018; 85025; 85347; 85384; 85610; 85730; 86885; 86900; 86901; 86920; 87070; 93005; 93880; 93971; 94002; 94010; 94760; 97110; 97116; 97162; 97530; 99152; 99153; A6213; A6257; A6258; A6402; A6449; A7000; A7048; C1713; C1760; C1769; J0282; J0690; J1644; J1720; J1815; J2001; J2060; J2150; J2250; J2270; J2370; J2405; J2930; J3010; J3370; J3475; J3480; J3490; J7030; J7120; J7507; P9045; P9047; Q0163; Q9967